=== PATIENT | female | born 1985 | race Caucasian/White ===

== ENCOUNTER 2017-09-30 23:00 | Inpatient (IN) | payer SELFPAY ==
[~2017-09-30] VITALS: Ht 162.6 cm; Wt 54.9 kg
[~2017-09-30 23:00] MED LIST: MMW SWISH-SWAL; PENI500T PO
[2017-09-30 23:03] VITALS: BP 127/68; PULSE 130; RESP 20; TEMP 98.7; O2SAT 98
[2017-10-01] VITALS (7 sets, daily range): BP systolic 75–137; BP diastolic 45–67; PULSE 70–88; RESP 16–19; TEMP 97.5–98.3; O2SAT 97–100
[2017-10-01] MEDS ORDERED: SODIUM CHLOR 0.9% 1000 ML INJ 1,000 ML IV ONE (00:30)
[2017-10-01] MEDS ORDERED: VANCOMYCIN INJ 200 ML IV ONE (00:30)
[2017-10-01] MEDS ORDERED: PIPERACIL-TAZO 4.5 GM PREMIX 100 ML IV ONE (00:30)
[2017-10-01] MEDS ORDERED: DEXAMETHASONE SOD PHOS 20 MG/5 ML VIAL IV PUSH ONE (00:30)
[2017-10-01] MEDS ORDERED: KETOROLAC TROMETHAMINE 30 MG/ML (IVP) VIAL IV PUSH ONE (00:30)
--- NOTE | 2017-10-01 01:10 | PD ---
HPI . Skin problem Chief Complaint: Skin Problem Time Seen by Provider: 00:10 Travel History International Travel<30 days: No Contact w/Intl Traveler<30days: No Traveled to known affect area: No History of Present Illness HPI 32-year-old female IV drug abuser notes having infection in the right elbow is been draining spontaneously for the past several days, has increased in size and now has very tense skin having difficulty moving right elbow having pain to range of motion of her right hand and fingers. She denies any fever chills sweats. Denies any chest pain or palpitations or shortness of breath. Patient has had abscesses before secondary to IV drug abuse. PFSH Past Medical History Narrative Medical Past medical history reviewed Arthritis: Yes Asthma: Yes Autoimmune Disease: No Blood Disorders: No Anxiety: Yes Depression: Yes Heart Rhythm Problems: No Cancer: No Cardiovascular Problems: Yes High Cholesterol: No Chemotherapy: No Chest Pain: Yes Congestive Heart Failure: No COPD: No Cerebrovascular Accident: No Diabetes: No Diminished Hearing: No Endocrine: No Gastrointestinal Disorders: No GERD: No Genitourinary: No Headaches: Yes Hiatal Hernia: No Heparin Induced Thrombocytopen: No Hypertension: No Immune Disorder: No Implanted Vascular Access Dvce: No Kidney Stones: No Musculoskeletal: Yes (L1-L4 fx, rib fx) Neurologic: Yes Psychiatric: Yes Reproductive: No Respiratory: Yes (asthma) Immunizations Current: Yes Migraines: Yes Radiation Therapy: No Renal Failure: No Seizures: Yes (last seizure 2009) Sickle Cell Disease: No Sleep Apnea: Yes Thyroid Disease: No Ulcer: No Tetanus Vaccination: < 5 Years Influenza Vaccination: No PNEUMOCCOCAL Vaccine (Year): 2 ?: Not LMP: 09/29/17 : 0 Past Surgical History Abdominal Surgery: Yes (spleen repair, intestine repair s/p trauma) AICD: No Arteriovenous Shunt: No Cardiac Surgery: No Ear Surgery: No Endocrine Surgery: No Eye Surgery: No Genitourinary Surgery: No Gynecologic Surgery: No Insulin Pump: No Joint Replacement: No Neurologic Surgery: No Oral Surgery: No Pacemaker: No Thoracic Surgery: Yes (Chest Tube s/p trauma) Other Surgery: No Social History Alcohol Use: No Tobacco Use: Yes Substance Use: Yes (iv didlaud) Allergies-Medications (Allergen,Severity, Reaction): Coded Allergies: No Known Allergies (Verified Adverse Reaction, Unknown, 09/30/17) Reported Meds & Prescriptions Reported Meds & Active Scripts Active Narrative Medication Allergies and medications reviewed Review of Systems Except as stated in HPI: all other systems reviewed are Neg General / Constitutional: No: Fever Eyes: No: Visual changes HENT: No: Headaches Cardiovascular: No: Chest Pain or Discomfort Respiratory: No: Shortness of Breath Gastrointestinal: No: Abdominal Pain Genitourinary: No: Dysuria Musculoskeletal: Positive: Arthralgias, Limited ROM, Edema, Pain Skin: No Rash Neurologic: No: Weakness Psychiatric: No: Depression Endocrine: No: Polydipsia Hematologic/Lymphatic: No: Easy Bruising Physical Exam Narrative GENERAL: Awake alert oriented 3 no acute distress. Patient appears uncomfortable SKIN: Warm and dry. Skin is normal color no diaphoresis cyanosis or pallor HEAD: Atraumatic. Normocephalic. EYES: Pupils equal and round. No scleral icterus. No injection or drainage. ENT: No nasal bleeding or discharge. Mucous membranes pink and moist. NECK: Trachea midline. No JVD. Supple full range of motion CARDIOVASCULAR: Regular rate and rhythm. S1-S2 no murmurs or gallops RESPIRATORY: No accessory muscle use. Clear to auscultation. Breath sounds equal bilaterally. GASTROINTESTINAL: Abdomen soft, non-tender, nondistended. Hepatic and splenic margins not palpable. MUSCULOSKELETAL: Right elbow markedly edematous, somewhat tense, limited range of motion secondary to pain. Patient does have range of motion and pulses with good cap refill in hands and fingers distally. NEUROLOGICAL: Awake and alert. No obvious cranial nerve deficits. Motor grossly within normal limits. Five out of 5 muscle strength in the arms and legs. Normal speech. PSYCHIATRIC: Appropriate mood and affect; insight and judgment normal. Data Data Last Documented VS Vital Signs Date Time Temp Pulse Resp B/P (MAP) Pulse Ox O2 Delivery O2 Flow Rate FiO2 09/30/17 23:03 98.7 130 20 127/68 (87) 98 Room Air Orders Orders Iv Access Insert/Monitor (10/01/17 00:17) Complete Blood Count With Diff (10/01/17 00:17) Comprehensive Metabolic Panel (10/01/17 00:17) Blood Culture (10/01/17 00:17) C-Reactive Protein (Crp) (10/01/17 00:17) Vancomycin Inj (Vancomycin Inj) (10/01/17 00:30) Piperacil-Tazo 4.5 Gm Premix (Zosyn 4.5 (10/01/17 00:30) Ketorolac Inj (Toradol Inj) (10/01/17 00:30) Dexamethasone Inj (Decadron Inj) (10/01/17 00:30) Sodium Chlor 0.9% 1000 Ml Inj (Ns 1000 M (10/01/17 00:30) Beta Hcg (Quant/Titer) (10/01/17 00:17) Ct Elbow W/O Contrast (10/01/17 ) Admit Order (Ed Use Only) (10/01/17 03:22) Labs Laboratory Tests Test 10/01/17 00:43 White Blood Count 8.2 TH/MM3 Red Blood Count 4.17 MIL/MM3 Hemoglobin 11.7 GM/DL Hematocrit 35.2 % Mean Corpuscular Volume 84.3 FL Mean Corpuscular Hemoglobin 28.1 PG Mean Corpuscular Hemoglobin Concent 33.4 % Red Cell Distribution Width 15.3 % Platelet Count 250 TH/MM3 Mean Platelet Volume 8.8 FL Neutrophils (%) (Auto) 73.8 % Lymphocytes (%) (Auto) 15.8 % Monocytes (%) (Auto) 9.7 % Eosinophils (%) (Auto) 0.4 % Basophils (%) (Auto) 0.3 % Neutrophils # (Auto) 6.1 TH/MM3 Lymphocytes # (Auto) 1.3 TH/MM3 Monocytes # (Auto) 0.8 TH/MM3 Eosinophils # (Auto) 0.0 TH/MM3 Basophils # (Auto) 0.0 TH/MM3 CBC Comment DIFF FINAL Differential Comment Blood Urea Nitrogen 7 MG/DL Creatinine 0.65 MG/DL Random Glucose 108 MG/DL Total Protein 8.4 GM/DL Albumin 3.4 GM/DL Calcium Level 8.6 MG/DL Alkaline Phosphatase 104 U/L Aspartate Amino Transf (AST/SGOT) 11 U/L Alanine Aminotransferase (ALT/SGPT) 18 U/L Total Bilirubin 0.3 MG/DL Sodium Level 132 MEQ/L Potassium Level 3.5 MEQ/L Chloride Level 98 MEQ/L Carbon Dioxide Level 25.2 MEQ/L Anion Gap 9 MEQ/L Estimat Glomerular Filtration Rate 106 ML/MIN C-Reactive Protein 15.10 MG/DL Human Chorionic Gonadotropin, Quant LESS THAN 1 MIU/ML MDM Medical Decision Making Medical Screen Exam Complete: Yes Emergency Medical Condition: Yes Medical Record Reviewed: Yes Differential Diagnosis Right forearm/elbow cellulitis right forearm/elbow infection Narrative Course IV established right EJ 18-gauge under strict sterile technique, patient tolerated well Patient is pancultured broad-spectrum metabolic disorder at presentation. Pain medications with steroids and IV fluids. CT right elbow consistent with diffuse lattice. No abscess or intra-articular collection seen Case discussed with Dr. Najera hospitalist service, admitted Diagnosis Primary Impression: Cellulitis Qualified Codes: L03.113 - Cellulitis of right upper limb Admitting Information Admitting Physician Requests: Admit Maycol Barker MD Oct 01, 2017 01:10
[2017-10-01 01:13] LABS: AUTOMATED NEUTROPHIL # 6.1 TH/MM3 (1.8-7.7); BASOPHIL % 0.3 % (0.0-2.0); EOSINOPHIL % 0.4 % (0.0-4.0); HEMATOCRIT 35.2 % (35.0-46.0); HEMOGLOBIN 11.7 GM/DL (11.6-15.3); LYMPH % 15.8 % (9.0-44.0); LYMPHOCYTE # 1.3 TH/MM3 (1.0-4.8); MEAN CELL VOLUME 84.3 FL (80.0-100.0); MEAN CORPUSCULAR HEMOGLOBIN 28.1 PG (27.0-34.0); MEAN CORPUSCULAR HGB CONC 33.4 % (32.0-36.0); MEAN PLATELET VOLUME 8.8 FL (7.0-11.0); MONO % 9.7 % (0.0-8.0); MONOCYTE # 0.8 TH/MM3 (0-0.9); NEUT % 73.8 % (16.0-70.0); PLATELET COUNT 250 TH/MM3 (150-450); RED BLOOD COUNT 4.17 MIL/MM3 (4.00-5.30); RED CELL DISTRIBUTION WIDTH 15.3 % (11.6-17.2); WHITE BLOOD COUNT 8.2 TH/MM3 (4.0-11.0)
[2017-10-01 01:28] LABS: ALBUMIN 3.4 GM/DL (3.4-5.0); ALT (GPT) 18 U/L (10-53); AST (GOT) 11 U/L (15-37); BICARBONATE 25.2 MEQ/L (21.0-32.0); BLOOD UREA NITROGEN 7 MG/DL (7-18); CALCIUM 8.6 MG/DL (8.5-10.1); CHLORIDE 98 MEQ/L (98-107); CREATININE 0.65 MG/DL (0.50-1.00); GLOMERULAR FILTRATION RATE 106 ML/MIN (>89); GLUCOSE,RANDOM 108 MG/DL (74-106); SODIUM (NA) 132 MEQ/L (136-145)
[2017-10-01 01:32] LABS: ALKALINE PHOSPHATASE 104 U/L (45-117); TOTAL BILIRUBIN ADULT 0.3 MG/DL (0.2-1.0); TOTAL PROTEIN 8.4 GM/DL (6.4-8.2)
--- NOTE | 2017-10-01 02:54 | RADRPT ---
EXAM DATE/TIME: 10/01/2017 02:24 [place] COMPARISON: No previous studies available for comparison. INDICATIONS : Right elbow pain and swelling, evaluate for abscess. RADIATION DOSE: 38.02 CTDIvol (mGy) MEDICAL HISTORY : IV drug use. SURGICAL HISTORY : None. ENCOUNTER: Initial ACUITY: 1 day PAIN SCALE: 10/10 LOCATION: Left elbow. TECHNIQUE: Volumetric scanning of the elbow was performed. Using automated exposure control and adjustment of t he mA and/or kV according to patient size, radiation dose was kept as low as reasonably achievable to obtain optimal diagnostic quality images. DICOM format image data is available electronically for r eview and comparison. FINDINGS: BONES: No evidence of fracture. There is no evidence of any cortical erosion or bony destruction. Alignment is within normal limits. JOINTS: Small joint effusion. There is good alignment at the joint. No joint dislocation. SOFT TISSUES: There is diffuse nonspecific edema throughout the subcutaneous soft tissues surrounding the elbow. Th ere is edema within some of the muscle structures. However, no loculated fluid collection is seen to indicate a soft tissue abscess at this time. CONCLUSION: 1. Diffuse nonspecific edema throughout the subcutaneous soft tissues and muscles surrounding the elb ow. 2. The bony structures are grossly intact with no evidence of any bony erosion or distraction. Ronnie Baldwin MD on October 01, 2017 at 2:47 Board Certified Radiologist. This report was verified electronically.
[2017-10-01] MEDS ORDERED: Vancomycin Consult Pharmacy 1 EA OTHER SCH (03:30)
[2017-10-01] MEDS ORDERED: NALOXONE HCL 0.4 MG/ML AMP IV PUSH PRN (03:30)
[2017-10-01] MEDS ORDERED: SODIUM CHLORIDE 0.9% FLUSH 10 ML FLUSH IV FLUSH PRN (03:30)
[2017-10-01] MEDS: PIPERACIL-TAZO 4.5 GM PREMIX 100 ML IV SCH ×3 (08:04→21:58)
[2017-10-01] MEDS: SODIUM CHLORIDE 0.9% FLUSH 10 ML FLUSH IV FLUSH SCH ×2 (09:02→21:58)
--- NOTE | 2017-10-01 09:15 | HHI.HP ---
HPI Service [facility] Primary Care Physician No Primary Care Physician Admission Diagnosis Cellulitis Right Elbow Diagnoses: Chief Complaint: Right Elbow abscess. Travel History International Travel<30 Days: No Contact w/Intl Traveler <30 Da: No Traveled to Known Affected Are: No History of Present Illness This is a pleasant 32 y/o Female who is IV drug abuser, who came to ER with Right elbow infection and draining spontaneously for the last several days, has increased in size and now has very tense skin having difficulty moving right elbow having pain to range of motion of her right hand and fingers. She denies any fever chills sweats. Denies any chest pain or palpitations or shortness of breath. Patient has had abscesses before secondary to IV drug abuse. as per patient who was seen in Emergency Room, she abuse drugs on daily basis but refuse to talk about her drug abuse, states I have her file and her drug tests, has multiple track graham on her bilateral anterior cubital fossa, with important edema but no erythema on right elbow, is somnolent but gives information without difficulty. she is been like this for some weeks. but continue using her Right arm for drug abuse purposes. Review of Systems Constitutional: DENIES: Fever, Chills, Change in appetite Endocrine: DENIES: Heat/cold intolerance Eyes: DENIES: Blurred vision, Eye pain Musculoskeletal: COMPLAINS OF: Joint pain, Joint Swelling Except as stated in HPI: all other systems reviewed are Neg Past Family Social History Past Medical History OA Asthma Anxiety disorder Depression Migraine headaches. sleep apnea Seizure disorder last one 2009 Past Surgical History Spleen repair, Intestine repair status post trauma Reported Medications Reported Meds & Active Scripts Active Allergies: Coded Allergies: No Known Allergies (Verified Allergy, Unknown, 10/01/17) Active Ordered Medications Current Medications Medications (Trade) Dose Ordered Sig/Mandy Route Start Time Stop Time Status Last Admin (NS Flush) 2 ml UNSCH PRN IV FLUSH 10/01/17 03:30 (NS Flush) 2 ml BID IV FLUSH 10/01/17 09:00 10/01/17 09:02 (Narcan Inj) 0.4 mg UNSCH PRN IV PUSH 10/01/17 03:30 Pharmacy Profile Note 0 ml @ 0 mls/hr UNSCH OTHER 10/01/17 03:30 Piperacillin Sod/ Tazobactam Sod 100 ml @ 200 mls/hr Q6H IV 10/01/17 08:00 10/01/17 08:04 (Toradol Inj) 15 mg Q6H PRN IV PUSH 10/01/17 03:30 10/06/17 03:29 Family History asked and denied. Social History substance abuse IV Dilaudid denies other toxic habits lives with a roommate and states due to her Bipolar disorder does not find a job. Physical Exam Vital Signs Vital Signs Date Time Temp Pulse Resp B/P (MAP) Pulse Ox O2 Delivery O2 Flow Rate FiO2 10/01/17 07:04 79 16 92/56 (68) 100 Room Air 10/01/17 03:43 10/01/17 03:30 87 108/66 (80) 97 09/30/17 23:03 98.7 130 20 127/68 (87) 98 Room Air Physical Exam GENERAL: Awake alert, oriented x 3, but somnolent, refuse to give information abut her drug abuse. SKIN: Warm and dry. multiple track graham on bilateral antecubital fossa. HEAD: Atraumatic. Normocephalic. EYES: Pupils equal and round. No scleral icterus. No injection or drainage. ENT: No nasal bleeding or discharge. Mucous membranes pink and moist. NECK: Trachea midline. No JVD. Supple full range of motion CARDIOVASCULAR: Regular rate and rhythm. S1-S2 no murmurs or gallops RESPIRATORY: No accessory muscle use. Clear to auscultation. Breath sounds equal bilaterally. GASTROINTESTINAL: Abdomen soft, non-tender, nondistended. Hepatic and splenic margins not palpable. MUSCULOSKELETAL: Right elbow markedly edematous, somewhat tense, limited range of motion secondary to pain. Patient does have range of motion and pulses with good cap refill in hands and fingers distally. NEUROLOGICAL: Awake and alert. No obvious cranial nerve deficits. Motor grossly within normal limits. Five out of 5 muscle strength in the arms and legs. Normal speech. PSYCHIATRIC: Appropriate mood and affect; insight and judgment normal. Laboratory Laboratory Tests Test 10/01/17 00:43 White Blood Count 8.2 Red Blood Count 4.17 Hemoglobin 11.7 Hematocrit 35.2 Mean Corpuscular Volume 84.3 Mean Corpuscular Hemoglobin 28.1 Mean Corpuscular Hemoglobin Concent 33.4 Red Cell Distribution Width 15.3 Platelet Count 250 Mean Platelet Volume 8.8 Neutrophils (%) (Auto) 73.8 Lymphocytes (%) (Auto) 15.8 Monocytes (%) (Auto) 9.7 Eosinophils (%) (Auto) 0.4 Basophils (%) (Auto) 0.3 Neutrophils # (Auto) 6.1 Lymphocytes # (Auto) 1.3 Monocytes # (Auto) 0.8 Eosinophils # (Auto) 0.0 Basophils # (Auto) 0.0 CBC Comment DIFF FINAL Differential Comment Blood Urea Nitrogen 7 Creatinine 0.65 Random Glucose 108 Total Protein 8.4 Albumin 3.4 Calcium Level 8.6 Alkaline Phosphatase 104 Aspartate Amino Transf (AST/SGOT) 11 Alanine Aminotransferase (ALT/SGPT) 18 Total Bilirubin 0.3 Sodium Level 132 Potassium Level 3.5 Chloride Level 98 Carbon Dioxide Level 25.2 Anion Gap 9 Estimat Glomerular Filtration Rate 106 C-Reactive Protein 15.10 Human Chorionic Gonadotropin, Quant LESS THAN 1 Date/Time Source Procedure Growth Status 10/01/17 01:05 Blood Peripheral Aerobic Blood Culture Pending Received 10/01/17 01:05 Blood Peripheral Anaerobic Blood Culture Pending Received Result Diagram: 10/01/17 0043 10/01/17 0043 Imaging Last Impressions Upper Extremity CT 10/01/17 0000 Signed Impressions: Service Date/Time: Sunday, October 01, 2017 02:24 - CONCLUSION: 1. Diffuse nonspecific edema throughout the subcutaneous soft tissues and muscles surrounding the elbow. 2. The bony structures are grossly intact with no evidence of any bony erosion or distraction. Ronnie Baldwin MD Caprini VTE Risk Assessment Caprini VTE Risk Assessment: Mod/High Risk (score >= 2) Caprini Risk Assessment Model Point Value = 1 Point Value = 2 Point Value = 3 Point Value = 5 Age 41-60 Minor surgery BMI > 25 kg/m2 Swollen legs Varicose veins or History of unexplained or recurrent spontaneous Oral contraceptives or hormone replacement Sepsis (< 1 month) Serious lung disease, including pneumonia (< 1 month) Abnormal pulmonary function Acute myocardial infarction Congestive heart failure (< 1 month) History of inflammatory bowel disease Medical patient at bed rest Age 61-74 Arthroscopic surgery Major open surgery (> 45 min) Laparoscopic surgery (> 45 min) Malignancy Confined to bed (> 72 hours) Immobilizing plaster cast Central venous access Age >= 75 History of VTE Family history of VTE Factor V Leiden Prothrombin [id number] Lupus anticoagulant Anticardiolipin antibodies Elevated serum homocysteine Heparin-induced thrombocytopenia Other congenital or acquired thrombophilia Stroke (< 1 month) Elective arthroplasty Hip, pelvis, or leg fracture Acute spinal cord injury (< 1 month) Prophylaxis Regimen Total Risk Factor Score Risk Level Prophylaxis Regimen 0-1 Low Early ambulation 2 Moderate Order ONE of the following: *Sequential Compression Device (SCD) *Heparin 5000 units SQ BID 3-4 Higher Order ONE of the following medications: *Heparin 5000 units SQ TID *Enoxaparin/Lovenox 40 mg SQ daily (WT < 150 kg, CrCl > 30 mL/min) *Enoxaparin/Lovenox 30 mg SQ daily (WT < 150 kg, CrCl > 10-29 mL/min) *Enoxaparin/Lovenox 30 mg SQ BID (WT < 150 kg, CrCl > 30 mL/min) AND/OR *Sequential Compression Device (SCD) 5 or more Highest Order ONE of the following medications: *Heparin 5000 units SQ TID (Preferred with Epidurals) *Enoxaparin/Lovenox 40 mg SQ daily (WT < 150 kg, CrCl > 30 mL/min) *Enoxaparin/Lovenox 30 mg SQ daily (WT < 150 kg, CrCl > 10-29 mL/min) *Enoxaparin/Lovenox 30 mg SQ BID (WT < 150 kg, CrCl > 30 mL/min) AND *Sequential Compression Device (SCD) Assessment and Plan Assessment and Plan 1. Cellulitis of the Right Elbow, she is on broad spectrum antibiotics, following culture, continue pain medicine CT right elbow consistent with diffuse lattice, no abscess or intra- articular collection seen. to continue Vancomycin pharmacy consulted and Zosyn and follow blood cultures. DVT prophylaxis with Lovenox Code Status Full code Discussed Condition With patient. Physician Certification 2 Midnight Certification Type: Admission for Inpatient Services Order for Inpatient Services The services are ordered in accordance with Medicare regulations or non- Medicare payer requirements, as applicable. In the case of services not specified as inpatient-only, they are appropriately provided as inpatient services in accordance with the 2-midnight benchmark. Estimated LOS (days): 3 days is the estimated time the patient will need to remain in the hospital, assuming treatment plan goals are met and no additional complications. Post-Hospital Plan: Home Yuniel Bhat MD Oct 01, 2017 9:15 am
[2017-10-01] MEDS ORDERED: ACETAMINOPHEN 325 MG TAB PO PRN (09:45)
[2017-10-01] MEDS: ENOXAPARIN SODIUM 40 MG/0.4 ML SYRINGE SQ SCH (10:22)
[2017-10-01] MEDS: VANCOMYCIN 1,000 MG/NS 250 ML IV SCH ×2 (14:16)
[2017-10-01] MEDS: FAMOTIDINE 20 MG TAB PO SCH (21:58)
[2017-10-01] MEDS: KETOROLAC TROMETHAMINE 30 MG/ML (IVP) VIAL IV PUSH PRN (22:13)
[2017-10-02] VITALS: BP 107/51; PULSE 83; PULSE 86; RESP 16; TEMP 98.1; O2SAT 98
[2017-10-02] MEDS: VANCOMYCIN 1,000 MG/NS 250 ML IV SCH ×2 (03:40)
[2017-10-02] MEDS: PIPERACIL-TAZO 4.5 GM PREMIX 100 ML IV SCH ×2 (03:40→08:38)
[2017-10-02] MEDS: KETOROLAC TROMETHAMINE 30 MG/ML (IVP) VIAL IV PUSH PRN (03:41)
[2017-10-02 04:00] VITALS: BP 103/54; PULSE 86; PULSE 90; RESP 16; TEMP 97.1; O2SAT 99
[2017-10-02 04:12] VITALS: PULSE 86
[2017-10-02 08:00] VITALS: BP 111/57; PULSE 76; RESP 16; TEMP 97.3; O2SAT 98
[2017-10-02] MEDS: FAMOTIDINE 20 MG TAB PO SCH (08:38)
[2017-10-02] MEDS: SODIUM CHLORIDE 0.9% FLUSH 10 ML FLUSH IV FLUSH SCH (08:39)
[2017-10-02] MEDS: ENOXAPARIN SODIUM 40 MG/0.4 ML SYRINGE SQ SCH (08:39)
--- NOTE | 2017-10-02 10:43 | PD.AMA ---
Against Medical Advice Note Diagnosis: (1) Major depressive disorder (2) Cellulitis of right elbow (3) IVDU (intravenous drug user) (4) Noncompliance (5) Bipolar 1 disorder Discharge Disposition: Against Medical Advice Pt Condition on Discharge: Guarded Recommended Treatment Course FOLLOW UP IN HOSPITAL STOP IVDU AMA Statement Patient Fiorella Conde has decided to leave the hospital against medical advice. This patient has the capacity to refuse care and understands the risks of leaving, including permanent disability and/or , and has had an opportunity to ask questions about her condition. The patient has been informed that she may return for care at any time, and follow up has been arranged/ advised. This is a pleasant 32 y/o Female who is IV drug abuser, who came to ER with Right elbow infection and draining spontaneously for the last several days, has increased in size and now has very tense skin having difficulty moving right elbow having pain to range of motion of her right hand and fingers. She denies any fever chills sweats. Denies any chest pain or palpitations or shortness of breath. Patient has had abscesses before secondary to IV drug abuse. as per patient who was seen in Emergency Room, she abuse drugs on daily basis but refuse to talk about her drug abuse, states I have her file and her drug tests, has multiple track graham on her bilateral anterior cubital fossa, with important edema but no erythema on right elbow, is somnolent but gives information without difficulty. she is been like this for some weeks. but continue using her Right arm for drug abuse purposes. Salomón Caruso DO Oct 02, 2017 10:42
[2017-10-02] MEDS ORDERED: PHARMACY ORDERED LAB ONE (13:45)
== END 2017-10-02 09:48 | disposition left against medical advice (07) | DRG 603 ==
LOC: NEPE 23:00 → NEDA 10-01 03:23 → NEDH 10-01 08:23 → NEDA 10-01 12:01 → N04A 10-01 14:53
PROVIDERS: ADMIT Hospitalist; ATTEND Hospitalist
PROC: 05HP33Z Insertion of Infusion Device into Right External Jugular Vein, Percutaneous Approach (ICD-10-PCS; principal; 2017-10-01)
DX: L02.413 Cutaneous abscess of right upper limb (principal); F31.9 Bipolar disorder, unspecified; L03.113 Cellulitis of right upper limb; F41.9 Anxiety disorder, unspecified; J45.909 Unspecified asthma, uncomplicated; M19.90 Unspecified osteoarthritis, unspecified site; G47.30 Sleep apnea, unspecified; Z72.0 Tobacco use; F19.10 Other psychoactive substance abuse, uncomplicated; M19.91 Primary osteoarthritis, unspecified site; G43.909 Migraine, unspecified, not intractable, without status migrainosus; Z91.19 Patient's noncompliance with other medical treatment and regimen
CPT/HCPCS: 73200; 80053; 84702; 85025; 86140; 87040; 96365; 96368; 96375; J1100; J1650; J1885; J2543; J3370; J7030; J7050

== ENCOUNTER 2018-09-11 18:16 | Observation (INO) ==
[2018-09-11] MEDS ORDERED: Sod Chloride 0.9% Inj 1,000 ML IV.SIG ONE (18:26)
--- NOTE | 2018-09-11 18:35 | ED ---
HPI General Chief complaint: Seizure Stated complaint: Seizures Time Seen by Provider: 09/11/18 18:19 Source: patient Mode of arrival: ambulatory Limitations: no limitations History of Present Illness HPI narrative: Patient is a 33-year-old female brought in by her roommate due to concerns for seizure-like activity. Per roommate, patient had several episodes of shaking today. Most recently she was trying to cook pie when she had an episode and fell and hit her head. He brought her to the emergency department. On arrival, she appeared to be postictal. She woke up, she explained that she has been having these jerking Episodes today and she thinks she has a seizure disorder, but does not take anything for them. She complains of pain to her forehead where she hit her head and to her tongue from biting her tongue. She does not remember being brought here. She also does not remember vomiting. She denies feeling sick today. She denies fever or chills. She denies any abdominal pain. She has a history of IV drug abuse, but says she has not used in "a while." Severity is mild to moderate. Related Data Home Medications Medication Instructions Recorded Confirmed lithium carbonate 600 mg PO BID 08/12/18 09/11/18 olanzapine [Zyprexa] 2.5 mg PO DAILY 08/12/18 09/11/18 Allergies Allergy/AdvReac Type Severity Reaction Status Date / Time No Known Allergies Allergy Verified 09/11/18 18:25 Review of Systems ROS: all other systems reviewed are negative Constitutional Denies chills and Denies fever(s) ENT Denies dizziness and Reports headache(s) Cardiovascular Denies chest pain and Denies dyspnea Respiratory Denies cough Gastrointestinal Denies abdominal pain, Denies nausea and Reports vomiting Musculoskeletal Denies myalgias and Denies arthralgias Integumentary/Breasts Denies sores and Denies wounds Neurologic Reports seizure-like activity [facility] Medical History Medical History Anxiety (Acute) Bipolar 1 disorder (Acute) History of spleen injury (Acute) Seizure (Acute) Surgical History Surgical History No history of previous surgery (Acute) Social History Social History Substance History: Past History Second Hand Smoke Exposure: No Smoking Status: Never smoker How Often Do You Have a Drink Containing Alcohol: Never Recent Travel in [facility] within the Last 8 Weeks: No Recent Out of Country Travel within the Last 8 Weeks: No Exam Narrative Exam Narrative: GENERAL: Awake and alert, no acute distress. SKIN: Track graham on both arms. HEAD: Atraumatic. Normocephalic. EYES: Pupils equal and round. No scleral icterus. No injection or drainage. ENT: No nasal bleeding or discharge. Mucous membranes pink and moist. Evidence of tongue biting. NECK: Trachea midline. No JVD. CARDIOVASCULAR: Regular rate and rhythm. No murmur appreciated. RESPIRATORY: No accessory muscle use. Clear to auscultation. Breath sounds equal bilaterally. GASTROINTESTINAL: Abdomen soft, non-tender, nondistended. MUSCULOSKELETAL: No obvious deformities. No clubbing. No cyanosis. No edema. NEUROLOGICAL: Awake and alert. No obvious cranial nerve deficits. Motor grossly within normal limits. Normal speech. PSYCHIATRIC: Appropriate mood and affect; insight and judgment normal. Course Initial Documented Vital Signs Temperature 99.2 F 09/11/18 18:18 Pulse Rate 97 H 09/11/18 18:18 Respiratory Rate 18 09/11/18 18:18 Blood Pressure 113/66 09/11/18 18:18 Pulse Oximetry 97 09/11/18 18:18 Last Documented Vital Signs Temperature 98.2 F 09/12/18 00:00 Pulse Rate 79 09/12/18 00:00 Respiratory Rate 20 09/12/18 00:00 Blood Pressure 83/55 L 09/12/18 00:00 Pulse Oximetry 98 09/12/18 00:00 Sign Out Sign Out Data: Patient Sign Out occurred on 09/11/18 at 19:24. Patient's care was discussed, and care was transferred from Berenice Escamilla MD to Myriam Garcia MD. Sign Out Comment: Patient comes in with seizure like activity. Follow up labs and CT, disposition the patient. Last updated by Berenice Escamilla MD at 09/11/18 18:53 Post-Handoff Eval: Accepted in transfer of care Medical Decision Making MDM Narrative Medical decision making narrative: Patient is a 33-year-old female who is brought in by her roommate due to concerns for seizure-like activity. On arrival, patient was at first postictal, but she began to wake up. She has no focal weakness on exam. IV established, labs sent. Given a dose of Ativan. CT had ordered. Accepted in transfer of care CT brain noncontrast resulted no acute process Patient continues to rest comfortably patient's case discussed with medicine service for observation admission due to multiple episodes of partial seizure- like activity and then generalized tonic-clonic seizure. Unclear if patient is benzodiazepine dependent or benzodiazepine withdrawal. Left eye is otherwise grossly normal range. Patient's case discussed with [facility] service for obs admission to Dr rKamer Medical Screen Exam Complete: Yes Emergency Medical Condition: Yes Differential Diagnosis Differential Diagnosis: Seizure versus intoxication versus withdrawal Medical Records Medical records reviewed: Yes I reviewed the patient's medical records. Lab Data Lab results reviewed: Yes I reviewed the patient's lab results. Result diagrams: 09/11/18 19:15 09/11/18 19:15 POC Results POC Urine Results Negative Lab Results 09/11/18 09/11/18 09/11/18 Range/Units 19:15 19:15 19:15 CBC w Diff Auto diff final WBC 4.4 (4.0-11.0) th/mm3 RBC 4.44 (4.00-5.30) mil/mm3 Hgb 12.4 (11.6-15.3) gm/dL Hct 39.4 (35.0-46.0) % MCV 88.7 (80.0-100.0) fL MCH 28.0 (27.0-34.0) pg MCHC 31.6 L (32.0-36.0) % RDW 18.4 H (11.6-17.2) % Plt Count 128 L (150-450) th/mm3 MPV 9.0 (7.0-11.0) fL Neut % (Auto) 66.7 (16.0-70.0) % Lymph % (Auto) 21.3 (9.0-44.0) % Bullock % (Auto) 5.8 (0.0-8.0) % Eos % (Auto) 5.2 H (0.0-4.0) % Baso % (Auto) 1.0 (0.0-2.0) % Neut # (Auto) 3.0 (1.8-7.7) th/mm3 Lymph # (Auto) 0.9 L (1.0-4.8) th/mm3 Bullock # (Auto) 0.3 (0.0-0.9) th/mm3 Eos # (Auto) 0.2 (0.0-0.4) th/mm3 Baso # (Auto) 0.0 (0.0-0.2) th/mm3 WBC Differential . Differential Comment . Sodium 140 (136-145) meq/L Potassium 3.7 (3.5-5.1) meq/L Chloride 107 (98-107) meq/L Carbon Dioxide 25.1 (21.0-32.0) meq/L Anion Gap 8 (5-15) meq/L BUN 13 (7-18) mg/dL Creatinine 1.10 H (0.50-1.00) mg/dL Estimated GFR 57 L (>89) mL/min Random Glucose 92 (74-106) mg/dL Calcium 8.3 L (8.5-10.1) mg/dL Magnesium 2.3 (1.5-2.5) mg/dL Total Bilirubin 0.3 (0.2-1.0) mg/dL AST 16 (15-37) U/L ALT 16 (10-53) U/L Alkaline Phosphatase 60 (45-117) U/L Total Protein 8.0 (6.4-8.2) g/dL Albumin 3.8 (3.4-5.0) g/dL Urine Color (Yellw/Straw) Urine Clarity (Clear) Urine pH (5.0-8.5) Ur Specific Timblin (1.002-1.035) Urine Protein (Neg-Trace) mg/dL Urine Glucose (UA) (Negative) mg/dL Urine Ketones (Negative) mg/dL Urine Occult Blood (Negative) Urine Nitrate (Negative) Urine Bilirubin (Negative) Urine Urobilinogen (Less than 2) mg/dL Ur Leukocyte Esterase (Negative) Urine RBC (0-3) /hpf Urine WBC (0-5) /hpf Ur Squamous Epith Cells (0-5) /hpf Urine Bacteria (None) /hpf Micro UA Comment Ur Microscopic Review Urine Culture Comments Urine Opiates Screen (Neg) Ur Barbiturates Screen (Neg) Ur Amphetamines Screen (Neg) U Benzodiazepines Scrn (Neg) [place] 0.4 L (0.5-1.5) meq/L Urine Cocaine Screen (Neg) U Cannabinoids Screen (Neg) Serum Alcohol Less than 3 (0-5) mg/dL 09/11/18 09/11/18 Range/Units 19:20 19:20 CBC w Diff WBC (4.0-11.0) th/mm3 RBC (4.00-5.30) mil/mm3 Hgb (11.6-15.3) gm/dL Hct (35.0-46.0) % MCV (80.0-100.0) fL MCH (27.0-34.0) pg MCHC (32.0-36.0) % RDW (11.6-17.2) % Plt Count (150-450) th/mm3 MPV (7.0-11.0) fL Neut % (Auto) (16.0-70.0) % Lymph % (Auto) (9.0-44.0) % Bullock % (Auto) (0.0-8.0) % Eos % (Auto) (0.0-4.0) % Baso % (Auto) (0.0-2.0) % Neut # (Auto) (1.8-7.7) th/mm3 Lymph # (Auto) (1.0-4.8) th/mm3 Bullock # (Auto) (0.0-0.9) th/mm3 Eos # (Auto) (0.0-0.4) th/mm3 Baso # (Auto) (0.0-0.2) th/mm3 WBC Differential Differential Comment Sodium (136-145) meq/L Potassium (3.5-5.1) meq/L Chloride (98-107) meq/L Carbon Dioxide (21.0-32.0) meq/L Anion Gap (5-15) meq/L BUN (7-18) mg/dL Creatinine (0.50-1.00) mg/dL Estimated GFR (>89) mL/min Random Glucose (74-106) mg/dL Calcium (8.5-10.1) mg/dL Magnesium (1.5-2.5) mg/dL Total Bilirubin (0.2-1.0) mg/dL AST (15-37) U/L ALT (10-53) U/L Alkaline Phosphatase (45-117) U/L Total Protein (6.4-8.2) g/dL Albumin (3.4-5.0) g/dL Urine Color Yellow (Yellw/Straw) Urine Clarity Cloudy H (Clear) Urine pH 6.0 (5.0-8.5) Ur Specific Timblin 1.025 (1.002-1.035) Urine Protein Negative (Neg-Trace) mg/dL Urine Glucose (UA) Negative (Negative) mg/dL Urine Ketones Negative (Negative) mg/dL Urine Occult Blood Negative (Negative) Urine Nitrate Negative (Negative) Urine Bilirubin Negative (Negative) Urine Urobilinogen 0.2 (Less than 2) mg/dL Ur Leukocyte Esterase Negative (Negative) Urine RBC 0-3 (0-3) /hpf Urine WBC 6-8 H (0-5) /hpf Ur Squamous Epith Cells Greater than 10 H (0-5) /hpf Urine Bacteria Many H (None) /hpf Micro UA Comment Culture indicated Ur Microscopic Review Microscopic reviewed Urine Culture Comments Culture indicated Urine Opiates Screen Neg (Neg) Ur Barbiturates Screen Neg (Neg) Ur Amphetamines Screen Neg (Neg) U Benzodiazepines Scrn Neg (Neg) [place] (0.5-1.5) meq/L Urine Cocaine Screen Neg (Neg) U Cannabinoids Screen Neg (Neg) Serum Alcohol (0-5) mg/dL Imaging Data Radiologist's impression: Head CT 09/11/18 18:26 CONCLUSION: 1. No acute intracranial abnormality. . Discharge Plan Discharge Disposition Patient Disposition: ED Admit(ED Internal Use Only) Discharge Condition Condition: Stable Discharge Order Discharge Orders: ED Use Only Admit Order (Routine); Ordered 09/11/18 Ordered By: Myriam Garcia Discharge Details Diagnosis: Seizure Physicians Team ED Provider: Myriam Garcia Primary Care Provider: Primary Care Marylou Vasquez Attending Provider: Dana Kramer Status ED Status: Left Department Discharge Information Discharge Date/Time: 09/11/18 23:28
[2018-09-11 19:26] LABS: Eos # (Auto) 0.2 th/mm3 (0.0-0.4); Eos % (Auto) 5.2 % (0.0-4.0); Hematocrit 39.4 % (35.0-46.0); Hemoglobin 12.4 gm/dL (11.6-15.3); Lymph # (Auto) 0.9 th/mm3 (1.0-4.8); Lymph % (Auto) 21.3 % (9.0-44.0); Mean Corpuscular HGB Conc 31.6 % (32.0-36.0); Mean Corpuscular Volume 88.7 fL (80.0-100.0); Mono # (Auto) 0.3 th/mm3 (0.0-0.9); Mono % (Auto) 5.8 % (0.0-8.0); Neut % (Auto) 66.7 % (16.0-70.0); Platelet Count 128 th/mm3 (150-450); Red Blood Count 4.44 mil/mm3 (4.00-5.30); Red Cell Distribution Width 18.4 % (11.6-17.2); White Blood Count 4.4 th/mm3 (4.0-11.0)
[2018-09-11 19:34] LABS: Chloride 107 meq/L (98-107); Potassium 3.7 meq/L (3.5-5.1); Sodium 140 meq/L (136-145)
[2018-09-11 19:37] LABS: Albumin 3.8 g/dL (3.4-5.0); Anion Gap 8 meq/L (5-15); Blood Urea Nitrogen 13 mg/dL (7-18); Calcium 8.3 mg/dL (8.5-10.1); Carbon Dioxide 25.1 meq/L (21.0-32.0); Glucose,Random 92 mg/dL (74-106); Magnesium 2.3 mg/dL (1.5-2.5)
[2018-09-11 19:40] LABS: Alanine Aminotransferase 16 U/L (10-53); Aspartate Aminotransferase 16 U/L (15-37); Glomerular Filtration Rate 57 mL/min (>89)
[2018-09-11 19:43] LABS: Alkaline Phosphatase 60 U/L (45-117)
[2018-09-11 19:51] LABS: Bilirubin,Urine Negative (Negative); Clarity,Urine Cloudy (Clear); Color,Urine Yellow (Yellw/Straw); Glucose,Urine (UA) Negative (Negative); Leukocyte Esterase,Urine Negative (Negative); Nitrite,Urine Negative (Negative); Specific Gravity,Urine 1.025 (1.002-1.035); Urobilinogen,Urine 0.2 mg/dL (Less than 2)
[2018-09-11 19:52] LABS: RBC,Urine 0-3 /hpf (0-3)
[2018-09-11 19:53] LABS: Amphetamine Screen,Urine Neg (Neg); Bacteria,Urine Many /hpf; Barbiturate Screen,Urine Neg (Neg); Cannabinoid Screen,Urine Neg (Neg); Cocaine Screen,Urine Neg (Neg); Squamous Epithelial Cell,Urine Greater than 10 /hpf (0-5)
[2018-09-11 20:04] LABS: Opiate Screen,Urine Neg (Neg)
--- NOTE | 2018-09-11 20:17 | CT ---
EXAM DATE: 09/11/2018 8:15 PM EST AGE/SEX: 33 years / Female INDICATIONS: Seizure. CLINICAL DATA: This is the patient's initial encounter. Patient reports that signs and symptoms have been present for 1 day and indicates a pain score of 0/10. MEDICAL/SURGICAL HISTORY: None. None. RADIATION DOSE: 52.35 CTDI (mGy) COMPARISON: No prior exams available for comparison. TECHNIQUE: CT of the head without contrast. Using automated exposure control and adjustment of the mA and/or kV according to patient size, radiation dose was kept as low as reasonably achievable to ob tain optimal diagnostic quality images. DICOM format image data is available electronically for revi ew and comparison. FINDINGS: Cerebrum: The ventricles are normal for age. No evidence of midline shift, mass lesion, hemorrhage o r acute infarction. No extraaxial fluid collections are seen. Posterior Fossa: The cerebellum and brainstem are intact. The 4th ventricle is midline. The cerebe llopontine angle is unremarkable. Extracranial: The visualized portion of the orbits is intact. Skull: The calvaria is intact. No evidence of skull fracture. CONCLUSION: 1. No acute intracranial abnormality. . Electronically signed by: Priyank Smith MD Board Certified Radiologist 09/11/2018 8:16 PM KIERRA Goins
[2018-09-11] MEDS ORDERED: Acetaminophen 325 MG Tablet PO PRN (21:48)
[2018-09-11] MEDS ORDERED: Bisacodyl 10 MG Supp RECTAL PRN (21:48)
[2018-09-11] MEDS: Sod Chloride 0.9% Inj 1,000 ML IV.CONT SCH (21:55)
[2018-09-12 00:31] VITALS: RESP 20; O2SAT 98
[2018-09-12 06:55] LABS: Baso % (Auto) 0.8 % (0.0-2.0); Eos # (Auto) 0.2 th/mm3 (0.0-0.4); Eos % (Auto) 3.5 % (0.0-4.0); Hematocrit 33.6 % (35.0-46.0); Hemoglobin 10.8 gm/dL (11.6-15.3); Lymph # (Auto) 1.1 th/mm3 (1.0-4.8); Lymph % (Auto) 19.7 % (9.0-44.0); Mean Corpuscular HGB Conc 32.2 % (32.0-36.0); Mean Corpuscular Hemoglobin 28.9 pg (27.0-34.0); Mean Corpuscular Volume 89.7 fL (80.0-100.0); Mean Platelet Volume 9.6 fL (7.0-11.0); Mono # (Auto) 0.4 th/mm3 (0.0-0.9); Mono % (Auto) 7.3 % (0.0-8.0); Neut # (Auto) 3.6 th/mm3 (1.8-7.7); Neut % (Auto) 68.7 % (16.0-70.0); Platelet Count 108 th/mm3 (150-450); Red Blood Count 3.74 mil/mm3 (4.00-5.30); Red Cell Distribution Width 18.2 % (11.6-17.2); White Blood Count 5.3 th/mm3 (4.0-11.0)
[2018-09-12 07:25] LABS: Potassium 3.8 meq/L (3.5-5.1)
[2018-09-12 07:45] LABS: Calcium 7.6 mg/dL (8.5-10.1)
[2018-09-12] MEDS: Sod Chloride 0.9% Inj 1,000 ML IV.CONT SCH (08:13)
[2018-09-12 08:48] VITALS: BP 95/61; PULSE 88; TEMP 97.9
[2018-09-12] MEDS ORDERED: OLANZapine 2.5 MG Tablet PO SCH (09:00)
--- NOTE | 2018-09-12 09:23 | MG ---
cc: Xander Parks MD EEG NUMBER: [id number]. DESCRIPTION: Frequent eye movement artifact. Posterior rhythm demonstrating 7-8 Hz activity, 20-50 microvolts. Reasonable driving with photic stimulation. Frequent eye movement artifact. Single EKG showing some artifact. INTERPRETATION: Normal electroencephalogram. Clinical correlation. MD FELICIANO Vargas/edy , 09:05 AM , 09:11 AM
[2018-09-12] MEDS ORDERED: carBAMazepine 200 MG Tablet PO ONE (09:52)
--- NOTE | 2018-09-12 10:36 | P.HPIM ---
History of Present Illness Primary Care Physician: No Primary Care Physician Chief Complaint: Seizure History of Present Illness: 33-year-old female with known history of bipolar, schizophrenia, anxiety, seizure disorder, history of IV drug use, polysubstance abuse who presented to the hospital for evaluation of seizure. Patient indicates that she has had seizure disorder for quite a few years. Her last known seizure to her was approximately 1 year ago. However there have been episodes where she has woke up from sleeping and noticed that she had bitten her tongue. Patient is followed by [facility] in the outpatient setting for her psychiatric conditions. Patient was in her normal state of health yesterday she was functioning normally she was having her periodic muscle twitches and tics and she had a big muscle twitching and tick where her body lurched forward she hit her head on the dresser. She denies any loss of consciousness at that time. Patient states that her friend noticed that she was not acting appropriately so she brought her to the hospital for evaluation. Patient states that last thing she remembers was getting into the car and starting to drive to the hospital and she then woke up in a hospital gown. It was documented by the ER physician that the patient was seen to have an seizure- like activity and when she presented to the hospital she had postictal state. Patient denied any loss of bowel or bladder control. Upon seeing the patient today she is very adamant that she does not want to be in the hospital anymore AMA forms were drawn out for her to sign herself out. I had a long discussion with her about appropriate management and arrangement of outpatient care. She does understand and is willing to wait until we can get that arranged for her. Review of Systems Review of Systems: all other systems reviewed are negative Neurologic: Reports other (Seizure) [facility] Medical History Medical History Anxiety (Acute) Bipolar 1 disorder (Acute) Schizophrenia (Acute) Seizure (Acute) Surgical History Surgical History History of spleen injury (Acute) No history of previous surgery (Acute) Social History Social History Substance History: Active Abuse Second Hand Smoke Exposure: No Smoking Status: Never smoker How Often Do You Have a Drink Containing Alcohol: Never Recent Travel in [facility] within the Last 8 Weeks: No Recent Out of Country Travel within the Last 8 Weeks: No Immunization History Tetanus Immunization: Unsure Medications and Allergies Allergies Allergy/AdvReac Type Severity Reaction Status Date / Time No Known Allergies Allergy Verified 09/11/18 18:25 Home Medications Medication Instructions Recorded Confirmed Type lithium carbonate 600 mg PO BID 08/12/18 09/11/18 History olanzapine [Zyprexa] 2.5 mg PO DAILY 08/12/18 09/11/18 History Physical Exam Vital signs: Last Vital Signs Temp 97.9 F 09/12/18 08:00 Pulse 88 09/12/18 08:00 Resp 20 09/12/18 08:00 BP 95/61 L 09/12/18 08:00 Pulse Ox 98 09/12/18 08:00 Intake & Output 09/10/18 09/11/18 09/12/18 09/13/18 06:59 06:59 06:59 06:59 Intake Total 1000 / 1000 1185 / 1185 Balance 1000 / 1000 1185 / 1185 Weight 67.9 kg Narrative: GENERAL: Well-developed, well-nourished, in no acute distress. alert and orientated HEENT: Head is normocephalic without any lesions or masses noted. Facial features are symmetric. Eyes: Pupils equal round reactive to light. Extraocular muscles are intact. Conjunctivae were clear. Oropharyngeal: Pharynx without any erythema edema. Tongue is midline without deviation. Buccal mucosa is moist without any masses or lesions NECK: Supple without any masses. Trachea midline no deviation. No JVD, no bruits are appreciated CARDIAC: Regular rhythm, regular rate. S1/S2 are heard. No murmurs gallops or rubs. LUNGS: Clear to auscultation bilaterally. No wheeze, rhonchi or rales. No use of accessory muscles on inspiration or expiration. ABDOMEN: Soft, nontender. Nondistended. Bowel sounds heard in all 4 quadrants. No organomegaly or masses. Negative rebound, negative guarding EXTREMITIES: No edema, pulses are equal bilaterally. No cyanosis or clubbing. Patient has rather extensive scars and track graham on her arms from previous IV drug use NEUROLOGY: Mood and affect appear appropriate. Cranial nerves II through XII grossly intact. Muscle strength 5/5 in upper and lower extremities bilaterally. Deep tendon reflexes are 2+ in upper and lower extremities bilaterally. Results Labs CBC & Chem 7: 09/12/18 06:10 09/12/18 06:[address] 09/11/18 18:26 CONCLUSION: 1. No acute intracranial abnormality. . Caprini VTE Risk Assessment Caprini VTE Risk Assessment: No/Low Risk (score <= 1) Caprini Risk Assessment Model: Point Value = 1 Point Value = 2 Point Value = 3 Point Value = 5 Age 41-60 Minor surgery BMI > 25 kg/m2 Swollen legs Varicose veins or History of unexplained or recurrent spontaneous Oral contraceptives or hormone replacement Sepsis (< 1 month) Serious lung disease, including pneumonia (< 1 month) Abnormal pulmonary function Acute myocardial infarction Congestive heart failure (< 1 month) History of inflammatory bowel disease Medical patient at bed rest Age 61-74 Arthroscopic surgery Major open surgery (> 45 min) Laparoscopic surgery (> 45 min) Malignancy Confined to bed (> 72 hours) Immobilizing plaster cast Central venous access Age >= 75 History of VTE Family history of VTE Factor V Leiden Prothrombin [id number] Lupus anticoagulant Anticardiolipin antibodies Elevated serum homocysteine Heparin-induced thrombocytopenia Other congenital or acquired thrombophilia Stroke (< 1 month) Elective arthroplasty Hip, pelvis, or leg fracture Acute spinal cord injury (< 1 month) Prophylaxis Regimen: Total Risk Factor Score Risk Level Prophylaxis Regimen 0-1 Low Early ambulation 2 Moderate Order ONE of the following: *Sequential Compression Device (SCD) *Heparin 5000 units SQ BID 3-4 Higher Order ONE of the following medications: *Heparin 5000 units SQ TID *Enoxaparin/Lovenox 40 mg SQ daily (WT < 150 kg, CrCl > 30 mL/min) *Enoxaparin/Lovenox 30 mg SQ daily (WT < 150 kg, CrCl > 10-29 mL/min) *Enoxaparin/Lovenox 30 mg SQ BID (WT < 150 kg, CrCl > 30 mL/min) AND/OR *Sequential Compression Device (SCD) 5 or more Highest Order ONE of the following medications: *Heparin 5000 units SQ TID (Preferred with Epidurals) *Enoxaparin/Lovenox 40 mg SQ daily (WT < 150 kg, CrCl > 30 mL/min) *Enoxaparin/Lovenox 30 mg SQ daily (WT < 150 kg, CrCl > 10-29 mL/min) *Enoxaparin/Lovenox 30 mg SQ BID (WT < 150 kg, CrCl > 30 mL/min) AND *Sequential Compression Device (SCD) Assessment and Plan Plan Acute seizure in a patient with known history of untreated seizures -Patient was given Ativan in the emergency department -EEG was performed and did not show any signs of seizure activity -Discussed with neurologist on-call who recommended the patient can be medicated with Tegretol 400 mg x1 and then 200 mg twice daily and discharged with outpatient follow-up -Case management consulted for mandatory referral for neurologist outpatient appointment Bipolar, schizophrenia, anxiety -Home medication continued with lithium, Zyprexa -Patient continue outpatient management with [employer] DVT prevention -Low risk, early ambulation Discharge planning Discharge home in stable condition Activity: Ad gudelia. Diet: Regular diet Medication per medication reconciliation Follow-up with primary medical doctor in 1 week H&P: Quality VTE Deep Vein Thrombosis/Pulmonary Embolism Present on Admission: No
--- NOTE | 2018-09-12 11:48 | ECG ---
Date Performed: 09/11/2018 Time Performed: 18:41:07 PTAGE: 33 years EKG: Sinus rhythm NONSPECIFIC T-WAVE ABNORMALITY BORDERLINE ECG PREVIOUS TRACING : 08/02/2012 15.11 Since the previous tracing, no significant change noted DOCTOR: Onel Roberts Interpretating Date/Time 09/12/2018 11:46:40
== END 2018-09-12 10:24 | disposition home or self-care (01) ==
LOC: PHED 18:16 → PHEDA 18:16 → PH3 23:12
PROVIDERS: ADMIT Hospitalist; ATTEND Hospitalist
CPT/HCPCS: 70450; 80048; 80053; 80178; 80307; 81001; 83735; 84703; 85025; 87086; 90761; 90774; 93005; 95819; 96361; 96374; 96375; 99285; C8952; G0378; J2060; J2405; J7030